=== PATIENT | female | born 1990 | race African-American/Black ===

== ENCOUNTER 2017-11-16 07:38 | Emergency (ER) | payer OTHER ==
[2017-11-16 08:46] LABS: Hematocrit 40.6 % (36.0-47.0); Red Blood Cell (RBC) Count 4.11 mill/uL (4.20-5.40); White Blood Cell (WBC) Count 5.2 thou/uL (4.8-10.8)
[2017-11-16 08:47] LABS: #Basophils 0.1 thou/uL (0.0-0.2); #Lymphocytes 1.7 thou/uL (1.20-3.40); #Monocytes 0.5 thou/uL (0.11-0.59); #Neutrophils 2.9 thou/uL (1.40-6.50); %Basophils 1.1 % (0.0-1.0); %Eosinophils 0.2 % (0.0-10.0); %Lymphocytes 32.2 % (21.0-51.0); Mean Platelet Volume 7.4 fL (7.4-10.4)
[2017-11-16] MEDS ORDERED: Lorazepam 2 MG/ML VIAL ONE (09:01)
[2017-11-16 09:02] LABS: Anion Gap 9 mmol/L (10-20); BUN (Urea Nitrogen) 15 mg/dL (7.0-18.7); Calc. Creatinine Clearance 0 mL/min (70-130); Calcium 8.7 mg/dL (7.8-10.44); Carbon Dioxide 21 mmol/L (22-29); Chloride 112 mmol/L (98-107); Estimated GFR-MDRD Greater than 90
[2017-11-16 09:44] LABS: Bilirubin Negative (Negative); Blood, Urine Trace (Negative); Glucose, Urine (Dipstick) Negative (Negative); Ketone, Urine Negative (Negative); Nitrite Negative (Negative); Protein, Urine (Dipstick) Trace mg/dL (Neg-Trace); Urobilinogen 0.2 mg/dL (0.2-1.0)
[2017-11-16 09:46] LABS: Bacteria/HPF 2+ HPF (None Seen); Hyaline Casts/LPF 4-6 HYALINE CAST LPF (0-3 Hyaline)
[2017-11-16 10:00] LABS: RBC/HPF 0-3 HPF (0-3)
--- NOTE | 2017-11-16 10:09 | CT ---
NONCONTRAST CT OF THE BRAIN: INDICATION: History of seizure. COMPARISON: Prior exam dated 11/20/16. 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 The septum pellu cidum is midline. There fractured ventriculostomy catheters seen within the lateral aspects of both bodies of the lateral ventricle. There is a left-sided parietal skull base ventriculostomy catheter projecting into the anterior horn of the left lateral ventricle which is unchanged from the compariso n study. Mastoid air cells are clear. The skull is intact. IMPRESSION: 1. Stable examination. No evidence of hydrocephalus. 2. Stable left parietally based ventriculostomy catheter. The fragmented catheters within the regio n of the left and right parietal regions adjacent to the lateral ventricles are similar-appearing. 3. 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 POS: RICKIE
== END 2017-11-16 10:30 | disposition home or self-care (01) ==
LOC: ERS 07:38
DX: G40.909 Epilepsy, unspecified, not intractable, without status epilepticus (principal); G80.9 Cerebral palsy, unspecified
CPT/HCPCS: 36415; 36416; 70450; 80048; 81003; 81015; 84146; 84443; 84703; 85025; 96374; J2060

== ENCOUNTER 2018-01-07 08:03 | Outpatient (CLI) | payer OTHER | END 2018-01-07 08:04 | disposition home or self-care (01) | LOC: EEG 08:03 | PROVIDERS: ATTEND Student in an Organized Health Care Education/Training Program | DX: G40.309 Generalized idiopathic epilepsy and epileptic syndromes, not intractable, without status epilepticus (principal); G40.209 Localization-related (focal) (partial) symptomatic epilepsy and epileptic syndromes with complex partial seizures, not intractable, without status epilepticus | CPT/HCPCS: 95816 ==

== ENCOUNTER 2018-05-27 20:08 | Emergency (ER) | payer OTHER ==
[2018-05-27] MEDS ORDERED: Acetaminophen 325 MG TAB ONE (21:18)
[2018-05-27] MEDS ORDERED: levETIRAcetam 500 MG TAB PO SCH (23:15)
--- NOTE | 2018-05-31 13:03 | EKG ---
Test Reason : Blood Pressure : / mmHG Vent. Rate : 124 BPM Atrial Rate : 124 BPM P-R Int : 124 ms QRS Dur : 068 ms QT Int : 308 ms P-R-T Axes : 081 046 043 degrees QTc Int : 442 ms Sinus tachycardia Otherwise normal ECG Confirmed by FANNY ANDERSON MD ([id number]), newspaper copy editor ZION SINCLAIR ([id number]) on 05/31/2018 1:02:41 PM Referred By: Confirmed By:FANNY ANDERSON MD
== END 2018-05-27 23:52 | disposition home or self-care (01) ==
LOC: ERS 20:08
DX: G40.909 Epilepsy, unspecified, not intractable, without status epilepticus (principal); F79 Unspecified intellectual disabilities; Z79.899 Other long term (current) drug therapy
CPT/HCPCS: 36415; 80177; 93005

== ENCOUNTER 2018-08-02 14:25 | Emergency (ER) | payer OTHER ==
[~2018-08-02 14:25] MED LIST: ISOVUE-370 76%-LOCM 1 ML ONE
[2018-08-02 15:18] LABS: Bilirubin Negative (Negative); Blood, Urine Negative (Negative); Clarity CLEAR (Clear); Glucose, Urine (Dipstick) Negative (Negative); Leukocyte Negative (Negative); Nitrite Negative (Negative); Protein, Urine (Dipstick) Negative (Neg-Trace); Specific Gravity, Urine 1.029 (1.002-1.036)
[2018-08-02 15:22] LABS: Pregnancy Test - Urine (BHCG) Negative (Negative); Pregu Control Background? CLEAR/WHITE (CLR/WHITE); Pregu Control Bar Appear? YES (CONTROL BAR); Specific Gravity 1.029 (1.002-1.036)
[2018-08-02 15:58] LABS: ALT (SGPT) 10 U/L (8-55); AST (SGOT) 11 U/L (5-34); Albumin 4.4 g/dL (3.5-5.0); Alkaline Phosphatase 52 U/L (40-150); Anion Gap 9 mmol/L (10-20); BUN (Urea Nitrogen) 16 mg/dL (7.0-18.7); Bilirubin, Total 0.3 mg/dL (0.2-1.2); Calc. Creatinine Clearance 0 mL/min (70-130); Calcium 8.8 mg/dL (7.8-10.44); Carbon Dioxide 20 mmol/L (22-29); Chloride 112 mmol/L (98-107); Estimated GFR-MDRD Greater than 90; Globulin 2.7 g/dL (2.4-3.5); Glucose 91 mg/dL (70-105); Lipase 41 U/L (8-78); Potassium 3.4 mmol/L (3.5-5.1); Protein, Total 7.1 g/dL (6.0-8.3); Sodium 138 mmol/L (136-145)
[2018-08-02 17:04] LABS: #Basophils 0.1 thou/uL (0.0-0.2); #Lymphocytes 2.3 thou/uL (1.20-3.40); #Monocytes 0.7 thou/uL (0.11-0.59); #Neutrophils 2.2 thou/uL (1.40-6.50); %Basophils 1.4 % (0.0-1.0); %Eosinophils 0.2 % (0.0-10.0); %Lymphocytes 43.7 % (21.0-51.0); %Monocytes 13.1 % (0.0-10.0); %Neutrophils 41.6 % (42.0-75.0); Hemoglobin 12.8 g/dL (12.0-16.0); Mean Corpuscular HGB CONC 34.5 g/dL (32.0-36.0); Mean Corpuscular Volume 92.9 fL (78.0-98.0); Mean Platelet Volume 7.4 fL (7.4-10.4); Platelet Count 254 thou/uL (130-400); Red Blood Cell (RBC) Count 4.01 mill/uL (4.20-5.40); White Blood Cell (WBC) Count 5.2 thou/uL (4.8-10.8)
--- NOTE | 2018-08-02 17:57 | CT ---
CT ABDOMEN WITH CONTRAST CT PELVIS WITH CONTRAST: DATE: 08/22/18 TIME: 5:16 p.m. HISTORY: 28-year-old female with generalized abdominal pain. COMPARISON: None. TECHNIQUE: IV injection of iodinated contrast media: 100 mL Isovue 370. Oral contrast media: Not administered. FINDINGS: CLINICAL DOCUMENTATION CONSULTANT shunt catheter travels inferiorly along the subcutaneous fat anterior to the left anterior abdomin al wall, enters the peritoneal cavity through the lateral edge of the left rectus abdominis muscle, l oops centrally at the lower anterior portion of the peritoneal cavity, with distal tip in the right s [place] of the pelvic cavity. There is a moderate amount of free fluid within the pelvic cavity. There is a small pocket of free fluid in the right side of the abdominal cavity located anterior to the L2 le [place]. Normal appendix, abdominal aorta, bilateral kidneys, adrenals, pancreas, liver, and spleen. Cont racted gallbladder. Calcific densities abutting a small hiatal hernia may or may not represent postsu rgical material. Lung bases are clear. No small bowel dilation. Moderate amount of colonic stool. No signs of colonic diverticulitis. IMPRESSION: 1. Small sliding hiatal hernia with calcific densities around it which may represent surgical ma terial. 2. Ventriculoperitoneal shunt catheter. 3. Moderate amount of free fluid within the pelvic cavity may represent cerebrospinal fluid from the ventriculoperitoneal shunt. 4. A smaller pocket of free fluid in the right upper quadrant. PORTIA Lantigua POS: RICKIE
== END 2018-08-02 19:49 | disposition home or self-care (01) ==
LOC: ERS 14:25
DX: E87.6 Hypokalemia (principal); G40.909 Epilepsy, unspecified, not intractable, without status epilepticus; G80.9 Cerebral palsy, unspecified; Z79.899 Other long term (current) drug therapy
CPT/HCPCS: 36415; 74177; 80053; 81003; 81025; 83690; 85025

== ENCOUNTER 2018-08-28 13:14 | Emergency (ER) | payer OTHER ==
[2018-08-28] MEDS ORDERED: levETIRAcetam In NaCl (Iso-Os) 1,000 MG in Premix Bag 1 BAG IVPB SCH (14:30)
[2018-08-28 15:18] LABS: #Basophils 0.1 thou/uL (0.0-0.2); #Lymphocytes 1.9 thou/uL (1.20-3.40); #Monocytes 0.6 thou/uL (0.11-0.59); #Neutrophils 2.6 thou/uL (1.40-6.50); %Basophils 1.3 % (0.0-1.0); %Eosinophils 0.2 % (0.0-10.0); %Lymphocytes 37.3 % (21.0-51.0); %Monocytes 11.6 % (0.0-10.0); %Neutrophils 49.5 % (42.0-75.0); Hemoglobin 12.8 g/dL (12.0-16.0); Mean Corpuscular HGB CONC 32.6 g/dL (32.0-36.0); Mean Corpuscular Hemoglobin 30.9 pg (27.0-31.0); Mean Corpuscular Volume 94.7 fL (78.0-98.0); Mean Platelet Volume 7.7 fL (7.4-10.4); Platelet Count 279 thou/uL (130-400); RBC Distribution Width 11.8 % (11.5-14.5); Red Blood Cell (RBC) Count 4.16 mill/uL (4.20-5.40); White Blood Cell (WBC) Count 5.2 thou/uL (4.8-10.8)
[2018-08-28 15:29] LABS: BHCG - Serum Negative (NEGATIVE); Pregs Control Background? CLEAR/WHITE (CLR/WHITE); Pregs Control Bar Appear? YES (CONTROL BAR)
[2018-08-28 15:38] LABS: ALT (SGPT) 10 U/L (8-55); AST (SGOT) 10 U/L (5-34); Albumin 4.4 g/dL (3.5-5.0); Alkaline Phosphatase 48 U/L (40-150); Anion Gap 10 mmol/L (10-20); BUN (Urea Nitrogen) 13 mg/dL (7.0-18.7); Bilirubin, Total 0.2 mg/dL (0.2-1.2); Calc. Creatinine Clearance 0 mL/min (70-130); Calcium 9.4 mg/dL (7.8-10.44); Carbon Dioxide 27 mmol/L (22-29); Chloride 107 mmol/L (98-107); Estimated GFR-MDRD Greater than 90; Globulin 2.7 g/dL (2.4-3.5); Glucose 87 mg/dL (70-105); Potassium 3.6 mmol/L (3.5-5.1); Protein, Total 7.1 g/dL (6.0-8.3); Sodium 140 mmol/L (136-145)
== END 2018-08-28 17:25 | disposition home or self-care (01) ==
LOC: ERS 13:14
DX: G40.909 Epilepsy, unspecified, not intractable, without status epilepticus (principal); Z79.899 Other long term (current) drug therapy; Z79.1 Long term (current) use of non-steroidal anti-inflammatories (NSAID)
CPT/HCPCS: 80053; 80177; 84703; 85025; 96365; J1953

== ENCOUNTER 2020-08-23 10:49 | Emergency (ER) | payer OTHER | END 2020-08-23 11:20 | disposition home or self-care (01) | LOC: ERS 10:49 | DX: G40.409 Other generalized epilepsy and epileptic syndromes, not intractable, without status epilepticus (principal) | CPT/HCPCS: 36416; 99281 ==

== ENCOUNTER 2021-01-05 09:57 | Emergency (ER) | payer OTHER | END 2021-01-05 11:00 | disposition home or self-care (01) | LOC: ERS 09:57 | DX: Z20.822 Contact with and (suspected) exposure to COVID-19 (principal) | CPT/HCPCS: 99283 ==

== ENCOUNTER 2021-05-22 16:39 | Emergency (ER) | payer OTHER ==
[2021-05-22] MEDS ORDERED: Acetaminophen 650 MG/20.3 ML UDCUP ONE (17:36)
[2021-05-22] MEDS ORDERED: Ibuprofen 100 MG/5 ML UDCUP ONE (19:22)
== END 2021-05-22 19:27 | disposition home or self-care (01) ==
LOC: ERS 16:39
DX: S00.03XA Contusion of scalp, initial encounter (principal); W03.XXXA Other fall on same level due to collision with another person, initial encounter
CPT/HCPCS: 70450

== ENCOUNTER 2021-07-06 09:29 | Emergency (ER) | payer OTHER ==
[2021-07-06] MEDS ORDERED: Acetaminophen 325 MG TAB ONE (12:19)
== END 2021-07-06 12:22 | disposition home or self-care (01) ==
LOC: ERS 09:29
DX: S00.03XA Contusion of scalp, initial encounter (principal); W22.8XXA Striking against or struck by other objects, initial encounter
CPT/HCPCS: 70450

== ENCOUNTER 2023-02-03 20:10 | Emergency (ER) | payer OTHER | END 2023-02-03 21:28 | disposition short-term general hospital (02) | LOC: ERS 20:10 → EDBD 20:10 → ERS 21:28 | DX: T76.21XA Adult sexual abuse, suspected, initial encounter (principal); G40.909 Epilepsy, unspecified, not intractable, without status epilepticus | CPT/HCPCS: 99284 ==